=== PATIENT | female | born 1950 | race Caucasian/White ===

== ENCOUNTER 2023-11-14 08:47 | Emergency (ER) | payer MEDICAID, OTHER ==
[~2023-11-14] VITALS: Ht 160 cm; Wt 70.0 kg
[2023-11-14 08:50] VITALS: O2SAT 98
[2023-11-14] MEDS: KETOROLAC 30MG/ML VIAL IM ONE (10:16)
[2023-11-14] MEDS: ACETAMINOPHEN 325MG TABLET PO ONE (10:16)
[2023-11-14] MEDS ORDERED: IBUP-2028 MT (12:04)
[2023-11-14 12:41] VITALS: BP 155/84; PULSE 78; RESP 16; TEMP 36.94740; O2SAT 98
== END 2023-11-14 12:42 | disposition home or self-care (01) ==
LOC: ER 08:47
DX: M79.89 Other specified soft tissue disorders (principal)
CPT/HCPCS: 93971; 73610; 73630; 29515; 96372; 99285; J1885; Z7610 ×2